=== PATIENT | female | born 1990 | race Caucasian/White ===

== ENCOUNTER 2017-09-18 01:56 | Emergency (ER) | payer BC ==
[~2017-09-18] VITALS: Ht 170.2 cm; Wt 62.1 kg
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
[2017-09-18] MEDS ORDERED: ACETAMINOPHEN ES 500 MG TABLET ONE (02:09)
--- NOTE | 2017-09-18 02:10 | NUR ---
DR. SORENSON AT BEDSIDE FOR EVAL.
[2017-09-18] MEDS ORDERED: ACETAMINOPHEN ES 500 MG TABLET PO ONE (02:30)
--- NOTE | 2017-09-18 03:14 | NUR ---
Patient discharged to home in stable condition. Written and verbal after care instructions given. Patient verbalizes understanding of instruction. ambulatory with a steady gait
--- NOTE | 2017-09-18 03:15 | NUR ---
[facility] AT BEDSIDE FOR REPORT
[2017-09-18 03:19] VITALS: BP 110/70
== END 2017-09-18 03:19 | disposition home or self-care (01) ==
LOC: ER 01:59
DX: S30.1XXA Contusion of abdominal wall, initial encounter (principal); S70.212A Abrasion, left hip, initial encounter; M25.552 Pain in left hip; V49.50XA Passenger injured in collision with unspecified motor vehicles in traffic accident, initial encounter; Y93.89 Activity, other specified; Y92.410 Unspecified street and highway as the place of occurrence of the external cause; Y99.8 Other external cause status
CPT/HCPCS: 72170-TC; 73502; A4606; Z7610